=== PATIENT | male | born 1980 ===

== ENCOUNTER 2017-02-24 09:56 | Emergency (ER) | payer SELFPAY ==
[2017-02-24 10:11] VITALS: BP 189/122
--- NOTE | 2017-02-24 11:05 | ER Document Report ---
HPI - HPI Pain Level: 3 Notes: Patient is a 36-year-old male presents the ED complaining of left lower molar dental pain 3 days. Patient states that he does have a history of poor dentition. Patient states that he still able to eat and drink, but does have constant pain in that molar. He has not noticed any swelling or purulent discharge. The pain does not radiate. He denies any drug allergies. His past medical history significant for hypertension. Patient admits to smoking but denies any other illicit drug use. Patient states he is from out of town but is going back home next week he can schedule an appoint with a dentist at that time. Denies any fever, headache, facial swelling, neck pain/stiffness, sore throat, dysphagia, chest pain, palpitations, cough, wheeze, abdominal pain, nausea/vomiting/diarrhea, dysuria, joint pains, or rash. - ROS Notes: REVIEW OF SYSTEMS: CONSTITUTIONAL : Denies fever, chills, or sweats. Denies recent illness. EENT: see hpi CARDIOVASCULAR: Denies chest pain. Denies palpitations or racing or irregular heart beat. Denies ankle edema. RESPIRATORY: Denies cough, cold, or chest congestion. Denies shortness of breath, difficulty breathing, or wheezing. GASTROINTESTINAL: Denies abdominal pain or distention. Denies nausea, vomiting , or diarrhea. Denies blood in vomitus, stools, or per rectum. Denies black, tarry stools. Denies constipation. GENITOURINARY: Denies difficulty urinating, painful urination, burning, frequency, blood in urine, or discharge. MUSCULOSKELETAL: Denies back or neck pain or stiffness. Denies joint pain or swelling. SKIN: Denies rash, lesions or sores. NEUROLOGICAL: Denies confusion or altered mental status. Denies passing out or loss of consciousness. Denies dizziness or lightheadedness. Denies headache. Denies weakness or paralysis or loss of use of either side. Denies problems with gait or speech. Denies sensory loss, numbness, or tingling. Denies seizures. PSYCHIATRIC: Denies anxiety or stress. Denies depression, suicidal ideation, or homicidal ideation. ALL OTHER SYSTEMS REVIEWED AND NEGATIVE. Dictation was performed using [employer] voice recognition software - CARDIOVASCULAR Cardiovascular: DENIES: Chest pain - DERM Skin Color: Normal Past Medical History - Social History Smoking Status: Current Every Day Smoker Chew tobacco use (# tins/day): No Frequency of alcohol use: Occasional Drug Abuse: None Family History: Reviewed & Not Pertinent Patient has suicidal ideation: No Patient has homicidal ideation: No - Past Medical History Cardiac Medical History: Reports: Hx Hypertension Renal/ Medical History: Denies: Hx Peritoneal Dialysis Surgical Hx: Negative Vertical Provider Document - CONSTITUTIONAL Agree With Documented VS: Yes Notes: PHYSICAL EXAMINATION: GENERAL: Well-appearing, well-nourished and in no acute distress. HEAD: Atraumatic, normocephalic. EYES: Pupils equal round and reactive to light, extraocular movements intact, sclera anicteric, conjunctiva are normal. ENT: EAC clear b/l. TM's intact b/l without erythema, fluid, or perforation. Nares patent and without discharge. oropharynx clear without exudates. No tonsilar hypertrophy or erythema. Moist mucous membranes. No sinus tenderness. No uvula deviation. No palatine shift. No tongue protrusion. Mouth: poor dentition throughout. Left lower #19/18 appears intact, but possible cavity forming. No abscess, erythema, inflammation, or discharge noted. + tenderness to palp. No ludgwig's or lymphadenopathy. NECK: Normal range of motion, supple without lymphadenopathy. No rigidity/ meningismus. LUNGS: Breath sounds clear to auscultation bilaterally and equal. No wheezes rales or rhonchi. HEART: Regular rate and rhythm without murmurs, rubs, gallops. NEUROLOGICAL: Cranial nerves grossly intact. Normal speech, normal gait. Normal sensory, motor exams PSYCH: Normal mood, normal affect. SKIN: Warm, Dry, normal turgor, no rashes or lesions noted. - INFECTION CONTROL TRAVEL OUTSIDE OF THE [place] IN LAST 30 DAYS: No - RESPIRATORY O2 Sat by Pulse Oximetry: 97 Course - Re-evaluation Re-evalutation: 02/24/17 11:02 Patient is an afebrile, well-hydrated, 36-year-old male presents the ED with left lower molar dental pain, #18/19. Vitals are stable. PE otherwise unremarkable. Low suspicion for any peritonsillar/pharyngeal abscess, sepsis, meningitis, respiratory compromise, Manjit's, or other emergency systemic infection at this time. Offered patient a dental block along with antibiotics and Tessalon Perles. Patient declined a block in the Tessalon, but states he would like the antibiotic and a narcotic. Patient states that he had antibiotic and narcotic before and it worked really well for him and is adamant about having another narcotic for his pain. Reviewed with patient that I do not prescribe pain medication for dental pain. I again offered the block and the Tessalon which he declined. Patient states she will just take the antibiotic. I will send him home with clindamycin to take as directed. Advised that he needs to call a dentist for an appointment this week or next week. Recheck with his PCM in 2-3 days. Return to the ED with any worsening/concerning symptoms otherwise as reviewed in discharge. Patient is in agreement. Soon after leaving the room, the patient ended up walking out without seeing him prior to his formal discharge. 02/24/17 11:05 No prescription was written/printed as patient already left the room/ED. - Vital Signs Vital signs: Temp Pulse Resp BP Pulse Ox 98.8 F 59 L 189/122 H 97 02/24/17 10:10 02/24/17 10:10 02/24/17 10:10 02/24/17 10:10 Discharge - Discharge Clinical Impression: Toothache Condition: Stable Disposition: HOME, SELF-CARE Instructions: Toothache ([facility]), Clindamycin ([facility]) Additional Instructions: Downs/floss twice daily mouth wash, salt water gargles/rinse, peroxide rinse anbesol/oragel otc tylenol/ibuprofen as needed Schedule an appointment with dentist this week. Recheck with PCM this week Return to the ED with any worsening symptoms and/or development of fever, headache, facial swelling, trouble swallowing, swelling of lips/tongue/throat, chest pain, palpitations, syncope, shortness of breath, trouble breathing, abdominal pain, n/v/d, numbness/tingling, or other worsening symptoms that are concerning to you. Forms: Elevated Blood Pressure Referrals: [facility] [Provider Group] - Follow up in 1 week
== END 2017-02-24 10:54 | disposition left against medical advice (07) ==
LOC: ER 09:56
DX: K08.89 Other specified disorders of teeth and supporting structures (principal); F17.200 Nicotine dependence, unspecified, uncomplicated; Z53.29 Procedure and treatment not carried out because of patient's decision for other reasons; Z53.21 Procedure and treatment not carried out due to patient leaving prior to being seen by health care provider
CPT/HCPCS: 99281